=== PATIENT | female | born 1990 | race Caucasian/White ===

== ENCOUNTER 2021-07-15 10:55 | Emergency (ER) | payer OTHER ==
[2021-07-15 11:34] VITALS: BP 107/64; PULSE 78; TEMP 98.1; BMI 23.3
[2021-07-15] MEDS ORDERED: IBUPROFEN 400 MG TABLET (FP) PO ONE ×2 (11:48→12:28)
== END 2021-07-15 12:47 | disposition home or self-care (01) ==
LOC: JERFT 10:55
DX: S93.401A Sprain of unspecified ligament of right ankle, initial encounter (principal); W19.XXXA Unspecified fall, initial encounter
CPT/HCPCS: 73610-TC-RT-FY; 73630-TC-RT-FY; 99283-25

== ENCOUNTER 2021-08-31 23:58 | Emergency (ER) | payer OTHER ==
[2021-09-01 00:42] VITALS: BP 114/76; PULSE 82; TEMP 98.2; BMI 25.7
[2021-09-01] MEDS ORDERED: ONDANSETRON *ODT* 4 MG TABLET SL ONE (01:53)
[2021-09-01] MEDS ORDERED: KETOROLAC TROMETHAMINE 30 MG/1 ML VIAL IM ONE (01:54)
[2021-09-01] MEDS ORDERED: KETOROLAC TROMETHAMINE 60 MG/2 ML VIAL ONE (02:00)
[2021-09-01] MEDS ORDERED: ONDANSETRON *ODT* 4 MG TABLET ONE (02:00)
== END 2021-09-01 03:05 | disposition home or self-care (01) ==
LOC: JER 23:58
PROC: 3E0233Z Introduction of Anti-inflammatory into Muscle, Percutaneous Approach (ICD-10-PCS; principal; 2021-09-01)
DX: L02.31 Cutaneous abscess of buttock (principal)
CPT/HCPCS: 82962; 99283-25; Q0162